=== PATIENT | male | born 1985 | race African-American/Black ===

== ENCOUNTER 2018-11-13 08:16 | Emergency (ER) | payer SELFPAY ==
--- NOTE | 2018-11-13 08:35 | EDPHYS ---
Physician Documentation [facility] Name: Ebony Irizarry Jr Age: 33 yrs Sex: Male : 1985 Arrival Date: 11/13/2018 Time: 08:21 Bed 12 Private MD: None, None ED Physician Barney Gonzalez HPI: 11/13 08:42 This 33 yrs old Male presents to ER via Ambulatory with complaints of Rash. snw 08:42 The patient's rash thought to be caused by rash to upper lip. The rash is located on snw the left corner of mouth and right corner of mouth. The rash can be described as papular. Onset: The symptoms/episode began/occurred suddenly, 3 day(s) ago, and became persistent. Severity of symptoms: At their worst the symptoms were moderate in the emergency department the symptoms are unchanged. Treatment given at home: OTC lotion/cream expressing pus. The patient has not experienced similar symptoms in the past. no fever, no vomiting. Historical: - Allergies: 08:25 No Known Allergies; hj - Home Meds: 08:25 None [Active]; hj - PMHx: 08:25 None; hj - PSHx: 08:25 None; hj - Immunization history:: Adult Immunizations. - Social history:: Smoking status: Patient uses tobacco products, Patient uses. - Ebola Screening: : Patient negative for fever greater than or equal to 101.5 degrees Fahrenheit, and additional compatible Ebola Virus Disease symptoms Patient denies exposure to infectious person Patient denies travel to an Ebola-affected area in the 21 days before illness onset. ROS: 08:41 Constitutional: Negative for fever, chills, and weight loss, Eyes: Negative for injury, snw pain, redness, and discharge, Neck: Negative for injury, pain, and swelling, Cardiovascular: Negative for chest pain, palpitations, and edema, Respiratory: Negative for shortness of breath, cough, wheezing, and pleuritic chest pain, Abdomen/GI: Negative for abdominal pain, nausea, vomiting, diarrhea, and constipation, Back: Negative for injury and pain, : Negative for injury, bleeding, discharge, and swelling, MS/Extremity: Negative for injury and deformity, Skin: Negative for injury, rash, and discoloration, Neuro: Negative for headache, weakness, numbness, tingling, and seizure, Psych: Negative for depression, anxiety, suicide ideation, homicidal ideation, and hallucinations. 08:41 ENT: Positive for rash to upper lip x 3 days, pt squeezing it and expressing some pus. Exam: 08:37 Constitutional: This is a well developed, well nourished patient who is awake, alert, snw and in no acute distress. Head/Face: Normocephalic, atraumatic. Eyes: Pupils equal round and reactive to light, extra-ocular motions intact. Lids and lashes normal. Conjunctiva and sclera are non-icteric and not injected. Cornea within normal limits. Periorbital areas with no swelling, redness, or edema. Neck: Trachea midline, no thyromegaly or masses palpated, and no cervical lymphadenopathy. Supple, full range of motion without nuchal rigidity, or vertebral point tenderness. No Meningismus. Chest/axilla: Normal chest wall appearance and motion. Nontender with no deformity. No lesions are appreciated. Cardiovascular: Regular rate and rhythm with a normal S1 and S2. No gallops, murmurs, or rubs. Normal PMI, no JVD. No pulse deficits. Respiratory: Lungs have equal breath sounds bilaterally, clear to auscultation and percussion. No rales, rhonchi or wheezes noted. No increased work of breathing, no retractions or nasal flaring. Abdomen/GI: Soft, non-tender, with normal bowel sounds. No distension or tympany. No guarding or rebound. No evidence of tenderness throughout. Back: No spinal tenderness. No costovertebral tenderness. Full range of motion. Skin: Warm, dry with normal turgor. Normal color with no rashes, no lesions, and no evidence of cellulitis. MS/ Extremity: Pulses equal, no cyanosis. Neurovascular intact. Full, normal range of motion. Neuro: Awake and alert, GCS 15, oriented to person, place, time, and situation. Cranial nerves II-XII grossly intact. Motor strength 5/5 in all extremities. Sensory grossly intact. Cerebellar exam normal. Normal gait. 08:37 ENT: TM's: are normal, Nose: is normal, Posterior pharynx: is normal, Voice: is normal. 08:37 ENT: Mouth: Lips: dry, abscess to upper lateral right lip with minimal discharge and peeling of skin of lips. Vital Signs: 08:26 BP 144 / 85; Pulse 72; Resp 18; Temp 98.3(TE); Pulse Ox 100% on R/A; Weight 102.06 kg; hj Height 5 ft. 8 in. (172.72 cm); Pain 3/10; 08:26 Body Mass Index 34.21 (102.06 kg, 172.72 cm) hj MDM: 08:34 Patient medically screened. snw 08:39 Data reviewed: vital signs, nurses notes. Data interpreted: Pulse oximetry: on room air snw is 100 %. Interpretation: normal. Counseling: I had a detailed discussion with the patient and/or guardian regarding: the historical points, exam findings, and any diagnostic results supporting the discharge/admit diagnosis, the presence of at least one elevated blood pressure reading (>120/80) during this emergency department visit, the need for outpatient follow up, to return to the emergency department if symptoms worsen or persist or if there are any questions or concerns that arise at home. Special discussion: I have referred the patient to see his PCP for further evaluation of high blood pressure. Based on the history and exam findings, there is no indication for further emergent testing or inpatient evaluation. I discussed with the patient/guardian the need to see the primary care provider for further evaluation of the symptoms. Administered Medications: 08:32 Drug: Clindamycin 300 mg Route: PO; 08:34 Follow up: Response: No adverse reaction Disposition: 11/14 07:37 Co-signature as Attending Physician, Barney Gonzalez MD. rn Disposition: 11/13/18 08:34 Discharged to Home. Impression: Cutaneous abscess of face - upper lip. - Condition is Stable. - Discharge Instructions: Skin Abscess, Steps to Quit Smoking, Smoking Hazards, Heat Therapy. - Prescriptions for Clindamycin HCl 300 mg Oral Capsule - take 1 capsule by ORAL route every 6 hours for 10 days; 40 capsule. Valtrex 1 g Oral Tablet - take 2 tablet by ORAL route every 12 hours for 1 day; 4 tablet. Diclofenac Sodium 75 mg Oral Tablet Sustained Release - take 1 tablet by ORAL route 2 times per day; 30 tablet. - Medication Reconciliation Form, Thank You Letter, Antibiotic Education, Prescription Opioid Use form. - Follow up: Emergency Department; When: As needed; Reason: Worsening of condition. Follow up: Private Physician; When: 2 - 3 days; Reason: Recheck today's complaints, Continuance of care, Re-evaluation by your physician. Signatures: Emelia López, TELEVISION NEWS PRODUCER-C TELEVISION NEWS PRODUCER-Csnw Barney Gonzalez MD MD rn Smirch, Shelby, RN RN ss Joaquin, Henry, RN RN Corrections: (The following items were deleted from the chart) 11/13 08:42 08:34 11/13/2018 08:34 Discharged to Home. Impression: Cutaneous abscess of face - ss upper lip. Condition is Stable. Forms are Medication Reconciliation Form, Thank You Letter, Antibiotic Education, Prescription Opioid Use. Follow up: Emergency Department; When: As needed; Reason: Worsening of condition. Follow up: Private Physician; When: 2 - 3 days; Reason: Recheck today's complaints, Continuance of care, Re-evaluation by your physician. snw
--- NOTE | 2018-11-13 08:35 | ER ---
Nurse's Notes [facility] Name: Ebony Irizarry Jr Age: 33 yrs Sex: Male : 1985 Arrival Date: 11/13/2018 Time: 08:21 Bed 12 Private MD: None, None Diagnosis: Cutaneous abscess of face-upper lip Presentation: 11/13 08:23 Presenting complaint: Patient states: im breaking out like a rash, pus around my lips hj and it started 2 days ago, been using an OTC cream for swelling;. Transition of care: patient was not received from another setting of care. Onset of symptoms was November 13, 2018. Risk Assessment: Do you want to hurt yourself or someone else? Patient reports no desire to harm self or others. Initial Sepsis Screen: Does the patient meet any 2 criteria? No. Patient's initial sepsis screen is negative. Does the patient have a suspected source of infection? No. Patient's initial sepsis screen is negative. Care prior to arrival: None. 08:23 Method Of Arrival: Ambulatory 08:23 Acuity: MANUEL 4 Triage Assessment: 08:25 General: Appears in no apparent distress. uncomfortable, Behavior is calm, cooperative, hj appropriate for age. Pain: Complains of pain in mouth Pain currently is 4 out of 10 on a pain scale. Historical: - Allergies: 08:25 No Known Allergies; hj - Home Meds: 08:25 None [Active]; hj - PMHx: 08:25 None; hj - PSHx: 08:25 None; hj - Immunization history:: Adult Immunizations. - Social history:: Smoking status: Patient uses tobacco products, Patient uses. - Ebola Screening: : Patient negative for fever greater than or equal to 101.5 degrees Fahrenheit, and additional compatible Ebola Virus Disease symptoms Patient denies exposure to infectious person Patient denies travel to an Ebola-affected area in the 21 days before illness onset. Screenin:25 Abuse screen: Denies threats or abuse. Denies injuries from another. Nutritional hj screening: No deficits noted. Tuberculosis screening: No symptoms or risk factors identified. Fall Risk None identified. Assessment: 08:27 Reassessment: see triage for assessment;. hj Vital Signs: 08:26 BP 144 / 85; Pulse 72; Resp 18; Temp 98.3(TE); Pulse Ox 100% on R/A; Weight 102.06 kg; hj Height 5 ft. 8 in. (172.72 cm); Pain 3/10; 08:26 Body Mass Index 34.21 (102.06 kg, 172.72 cm) hj ED Course: 08:21 Patient arrived in ED. sb2 08:21 None, None is Private Physician. sb2 08:21 Emelia L[facility]pez FNP-C [facility]. snw 08:21 Barney Gonzalez MD is Attending Physician. snw 08:25 Triage completed. hj 08:26 Arm band placed on right wrist. hj 08:26 Patient has correct armband on for positive identification. Bed in low position. Call hj light in reach. Side rails up X 1. 08:27 Neri Hampton, RN is Primary Nurse. 08:42 No provider procedures requiring assistance completed. Patient did not have IV access ss during this emergency room visit. Administered Medications: 08:32 Drug: Clindamycin 300 mg Route: PO; hj 08:34 Follow up: Response: No adverse reaction Outcome: 08:34 Discharge ordered by . snw 08:42 Discharged to home ambulatory. ss 08:42 Condition: good 08:42 Discharge instructions given to patient, Instructed on discharge instructions, follow up and referral plans. medication usage, Demonstrated understanding of instructions, follow-up care, medications, Prescriptions given X 3. 08:42 Patient left the ED. ss Signatures: Emelia López FNP-C FNP-Ting Valdivia RN RN Neri Hampton RN RN Radha Prado sb2 Corrections: (The following items were deleted from the chart) 08:28 08:26 Pulse 72bpm; Resp 18bpm; Pulse Ox 100% RA; Temp 98.3F Temporal; 102.06 kg; Height hj 5 ft. 8 in.; BMI: 34.2; Pain 3/10; hj
[2018-11-13] MEDS ORDERED: CLINDAMYCIN HCL 150 MG CAP ONE (08:43)
== END 2018-11-13 08:42 | disposition home or self-care (01) ==
LOC: ER 08:16
DX: L02.01 Cutaneous abscess of face (principal); Z72.0 Tobacco use
CPT/HCPCS: 99283

== ENCOUNTER 2019-01-09 18:12 | Emergency (ER) | payer SELFPAY ==
--- NOTE | 2019-01-09 19:53 | ER ---
Nurse's Notes [facility] Name: Ebony Irizarry Jr Age: 33 yrs Sex: Male : 1985 Arrival Date: 01/09/2019 Time: 18:15 Bed 13 Private MD: None, None Diagnosis: Cellulitis of face Presentation: 01/09 18:21 Presenting complaint: Patient states: i was here a month ago for the same thing on my tw2 upper lip, i noticed it yesterday after i got a haircut. Transition of care: patient was not received from another setting of care. Onset: The symptoms/episode began/occurred 8 hour(s) ago. Anaphylaxis evaluation, angioedema. Onset of symptoms was January 09, 2019. Risk Assessment: Do you want to hurt yourself or someone else? Patient reports no desire to harm self or others. Initial Sepsis Screen: Does the patient meet any 2 criteria? No. Patient's initial sepsis screen is negative. Does the patient have a suspected source of infection? No. Patient's initial sepsis screen is negative. Care prior to arrival: None. 18:21 Method Of Arrival: Ambulatory tw2 18:21 Acuity: MANUEL 3 tw2 Triage Assessment: 18:23 General: Appears in no apparent distress. Behavior is calm, cooperative, appropriate tw2 for age. Pain: Denies pain. Historical: - Allergies: 18:25 No Known Allergies; tw2 - Home Meds: 18:25 None [Active]; tw2 - PMHx: 18:25 angioedema, 1 month ago; tw2 - PSHx: 18:25 None; tw2 - Immunization history:: Adult Immunizations up to date. - Social history:: Smoking status: Patient uses tobacco products, smokes one pack cigarettes per day. - Ebola Screening: : Patient denies travel to an Ebola-affected area in the 21 days before illness onset. Screenin:21 Abuse screen: Denies threats or abuse. Denies injuries from another. Nutritional hj screening: No deficits noted. Tuberculosis screening: No symptoms or risk factors identified. Fall Risk None identified. Assessment: 18:40 General: Appears in no apparent distress. comfortable, Behavior is calm, cooperative. pc1 Respiratory: No deficits noted. Airway is patent Respiratory effort is even, unlabored, relaxed, Respiratory pattern is regular, Breath sounds are clear bilaterally. Derm: Swelling to the lower lip. Appears to have a insect puncture wound to the lower lip. Reports Swelling of the lower lip. Started at approximately 09:00 today. stated that he waited to come to the ER to see if it would resolve its self. 18:40 Respiratory: Airway is patent Respiratory effort is even, unlabored, Respiratory hj pattern is regular, symmetrical, Breath sounds are clear. 19:15 Reassessment: Patient appears in no apparent distress at this time. Patient and/or cc3 family updated on plan of care and expected duration. Pain level reassessed. Patient is alert, oriented x 3, equal unlabored respirations, skin warm/dry/pink. Received this male patient from morning shift RN Neri as a case of swelling of the left side of his lower lip due to unknown reason. Still to be seen by a provider as endorsed. 20:40 Reassessment: Patient appears in no apparent distress at this time. Patient and/or cc3 family updated on plan of care and expected duration. Pain level reassessed. Patient is alert, oriented x 3, equal unlabored respirations, skin warm/dry/pink. KRYSTIAN Augustin discharged the patient home with prescription given. No IV cannula in situ. Patient left ER vitally stable and ambulatory with family. Vital Signs: 18:23 BP 123 / 99; Pulse 115; Resp 19; Temp 97.9(O); Pulse Ox 100% on R/A; Weight 108.41 kg tw2 (R); Height 5 ft. 8 in. (172.72 cm); Pain 10/10; 18:39 BP 150 / 103; Pulse 90; Resp 14; Temp 98.4; Pulse Ox 100% on R/A; pc1 19:24 BP 148 / 101; Pulse 98; Resp 20 S; Temp 99(O); Pulse Ox 99% on R/A; cc3 20:38 BP 128 / 74; Pulse 88; Resp 16; Temp 98.4; Pulse Ox 100% ; Pain 3/10; ls4 18:23 Body Mass Index 36.34 (108.41 kg, 172.72 cm) tw2 ED Course: 18:15 Patient arrived in ED. dl4 18:16 None, None is Private Physician. dl4 18:23 Triage completed. tw2 18:23 Arm band placed on. tw2 18:37 Charli Damico [facility]. pm1 18:37 Kosta Shaw MD is Attending Physician. pm1 18:44 Neri Hampton, RN is Primary Nurse. hj 18:44 Patient has correct armband on for positive identification. Bed in low position. Call pc1 light in reach. Side rails up X 1. Adult w/ patient. 18:44 Patient has correct armband on for positive identification. Bed in low position. Call hj light in reach. Side rails up X 1. 20:41 No provider procedures requiring assistance completed. Patient did not have IV access ls4 during this emergency room visit. Administered Medications: 20:00 Drug: Tylenol #3 (300 mg-30 mg) 1 tablet Route: PO; cc3 20:42 Follow up: Response: No adverse reaction ls4 20:10 Drug: Clindamycin 600 mg {Note: 300 mg on each right and left gluteal area.} Route: IM; cc3 Site: right gluteus; 20:42 Follow up: Response: No adverse reaction ls4 Outcome: 19:53 Discharge ordered by MD. pm1 20:41 Discharged to home ambulatory, with family. ls4 20:41 Condition: good 20:41 Discharge instructions given to patient, significant other, Instructed on discharge instructions, follow up and referral plans. medication usage, safety practices, Demonstrated understanding of instructions, follow-up care, medications, Prescriptions given X 3. 20:42 Patient left the ED. ls4 Signatures: Neri Hampton RN RN hj Marinas, Patrick, NP UNEMPLOYMENT EXAMINER pm1 Alicia Canales RN RN tw2 Jennifer Aguilar cc3 Frances Parker RN RN ls4 Kayden Miller dl4 Charli Perry pc1 Corrections: (The following items were deleted from the chart) 18:25 18:23 Pulse 115bpm; Resp 19bpm; Pulse Ox 100% RA; Temp 97.9F Oral; 108.41 kg Reported; tw2 Height 5 ft. 8 in.; BMI: 36.3; Pain 10/10; tw2
--- NOTE | 2019-01-09 19:53 | EDPHYS ---
Physician Documentation [facility] Name: Ebony Irizarry Jr Age: 33 yrs Sex: Male : 1985 Arrival Date: 01/09/2019 Time: 18:15 Bed 13 Private MD: None, None ED Physician Kosta Shaw HPI: 01/09 20:00 This 33 yrs old Black Male presents to ER via Ambulatory with complaints of Swollen lip.pm1 20:00 The patient presents with swelling of the lips. Onset: The symptoms/episode pm1 began/occurred yesterday. Associated signs and symptoms: Pertinent negatives: fever, shortness of breath. Possible causes: Pimple. At home the patient or guardian has treated the symptoms with Attempted to express and lip got more swollen. Severity of symptoms: in the emergency department the symptoms are worse. The patient has experienced a previous episode, approximately 1 months ago, and the symptoms today are exactly the same. The patient has not recently seen a physician. 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 Historical: - Allergies: 18:25 No Known Allergies; tw2 - Home Meds: 18:25 None [Active]; tw2 - PMHx: 18:25 angioedema, 1 month ago; tw2 - PSHx: 18:25 None; tw2 - Immunization history:: Adult Immunizations up to date. - Social history:: Smoking status: Patient uses tobacco products, smokes one pack cigarettes per day. - Ebola Screening: : Patient denies travel to an Ebola-affected area in the 21 days before illness onset. ROS: 20:00 Constitutional: Negative for fever, chills, and weight loss, Eyes: Negative for injury, pm1 pain, redness, and discharge, Neck: Negative for injury, pain, and swelling, Cardiovascular: Negative for chest pain, palpitations, and edema, Respiratory: Negative for shortness of breath, cough, wheezing, and pleuritic chest pain, Abdomen/GI: Negative for abdominal pain, nausea, vomiting, diarrhea, and constipation, Back: Negative for injury and pain, : Negative for injury, bleeding, discharge, and swelling, MS/Extremity: Negative for injury and deformity, Skin: Negative for injury, rash, and discoloration. 20:00 ENT: Positive for lower left sided lip swelling. Exam: 20:00 Constitutional: This is a well developed, well nourished patient who is awake, alert, pm1 and in no acute distress. Head/Face: Normocephalic, atraumatic. Eyes: Pupils equal round and reactive to light, extra-ocular motions intact. Lids and lashes normal. Conjunctiva and sclera are non-icteric and not injected. Cornea within normal limits. Periorbital areas with no swelling, redness, or edema. Neck: Trachea midline, no thyromegaly or masses palpated, and no cervical lymphadenopathy. Supple, full range of motion without nuchal rigidity, or vertebral point tenderness. No Meningismus. Chest/axilla: Normal chest wall appearance and motion. Nontender with no deformity. No lesions are appreciated. Cardiovascular: Regular rate and rhythm with a normal S1 and S2. No gallops, murmurs, or rubs. Normal PMI, no JVD. No pulse deficits. Respiratory: Lungs have equal breath sounds bilaterally, clear to auscultation and percussion. No rales, rhonchi or wheezes noted. No increased work of breathing, no retractions or nasal flaring. Abdomen/GI: Soft, non-tender, with normal bowel sounds. No distension or tympany. No guarding or rebound. No evidence of tenderness throughout. Back: No spinal tenderness. No costovertebral tenderness. Full range of motion. Skin: Warm, dry with normal turgor. Normal color with no rashes, no lesions, and no evidence of cellulitis. MS/ Extremity: Pulses equal, no cyanosis. Neurovascular intact. Full, normal range of motion. Neuro: Awake and alert, GCS 15, oriented to person, place, time, and situation. Cranial nerves II-XII grossly intact. Motor strength 5/5 in all extremities. Sensory grossly intact. Cerebellar exam normal. Normal gait. 20:00 ENT: External ear(s): are unremarkable, Ear canal(s): are normal, Nose: is normal, Mouth: Lips: swelling to the left lower lip. No fluctuance. Central flat lesion in the center without any discharge , Posterior pharynx: is normal, airway is patent, normal tonsil apperance, normal sized tonsils, normal uvula appearance, normal uvula size. Vital Signs: 18:23 BP 123 / 99; Pulse 115; Resp 19; Temp 97.9(O); Pulse Ox 100% on R/A; Weight 108.41 kg tw2 (R); Height 5 ft. 8 in. (172.72 cm); Pain 10/10; 18:39 BP 150 / 103; Pulse 90; Resp 14; Temp 98.4; Pulse Ox 100% on R/A; pc1 19:24 BP 148 / 101; Pulse 98; Resp 20 S; Temp 99(O); Pulse Ox 99% on R/A; cc3 20:38 BP 128 / 74; Pulse 88; Resp 16; Temp 98.4; Pulse Ox 100% ; Pain 3/10; ls4 18:23 Body Mass Index 36.34 (108.41 kg, 172.72 cm) tw2 MDM: 18:50 Patient medically screened. pm1 19:52 Data reviewed: vital signs. Data interpreted: Pulse oximetry: on room air is 99 %. pm1 Interpretation: normal. Counseling: I had a detailed discussion with the patient and/or guardian regarding: the historical points, exam findings, and any diagnostic results supporting the discharge/admit diagnosis, the need for outpatient follow up, to return to the emergency department if symptoms worsen or persist or if there are any questions or concerns that arise at home. Administered Medications: 20:00 Drug: Tylenol #3 (300 mg-30 mg) 1 tablet Route: PO; cc3 20:42 Follow up: Response: No adverse reaction ls4 20:10 Drug: Clindamycin 600 mg {Note: 300 mg on each right and left gluteal area.} Route: IM; cc3 Site: right gluteus; 20:42 Follow up: Response: No adverse reaction ls4 Disposition: 01/10 07:38 Co-signature as Attending Physician, Kosta Shaw MD I agree with the assessment and kdr plan of care. Disposition: 01/09/19 19:53 Discharged to Home. Impression: Cellulitis of face. - Condition is Stable. - Discharge Instructions: Cellulitis, Adult. - Prescriptions for Clindamycin HCl 300 mg Oral Capsule - take 1 capsule by ORAL route every 6 hours for 10 days; 40 capsule. Valtrex 1 g Oral Tablet - take 2 tablet by ORAL route every 12 hours for 1 day; 4 tablet. Tramadol 50 mg Oral Tablet - take 1 tablet by ORAL route every 8 hours as needed; 12 tablet. - Medication Reconciliation Form, Thank You Letter, Antibiotic Education, Prescription Opioid Use form. - Follow up: Emergency Department; When: As needed; Reason: Worsening of condition. Follow up: Private Physician; When: 2 - 3 days; Reason: Recheck today's complaints, Continuance of care, Re-evaluation by your physician. - Problem is new. - Symptoms have improved. Signatures: Kosta Shaw MD MD kdr Charli Damico NP BUREAU DIRECTOR pm1 Alicia Canales RN RN tw2 Jennifer Aguilar cc3 Frances Parker, RN RN ls4 Corrections: (The following items were deleted from the chart) 01/09 20:42 19:53 01/09/2019 19:53 Discharged to Home. Impression: Cellulitis of face. Condition is ls4 Stable. Forms are Medication Reconciliation Form, Thank You Letter, Antibiotic Education, Prescription Opioid Use. Follow up: Emergency Department; When: As needed; Reason: Worsening of condition. Follow up: Private Physician; When: 2 - 3 days; Reason: Recheck today's complaints, Continuance of care, Re-evaluation by your physician. Problem is new. Symptoms have improved. pm1
[2019-01-09] MEDS ORDERED: CODEINE 30MG/APAP 300MG TAB ONE (20:10)
[2019-01-09] MEDS ORDERED: CLINDAMYCIN IV 150 MG/ML (4 mL) VIAL ONE (20:13)
== END 2019-01-09 20:42 | disposition home or self-care (01) ==
LOC: ER 18:12
DX: L03.211 Cellulitis of face (principal); F17.210 Nicotine dependence, cigarettes, uncomplicated
CPT/HCPCS: 96372; 99283; S0077

== ENCOUNTER → 2024-01-28 | Emergency (ER) | payer SELFPAY ==
[~2024-01-28] MED LIST: BUPIVACAINE 0.25% PF 10 ML VIAL ONE; CEPHALEXIN 250 MG CAP ONE; HYDROCODONE/APAP 10/325 TAB ONE; LIDOCAINE 1% MPF 5 ML VIAL ONE; SMZ./TMP. 800/160 MG TABLET ONE
--- OUTSIDE RECORDS SUMMARY | 2024-01-28 14:07 | XMS REPORT | Continuity of Care Document ---
Author Name Unknown Address [address] 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 Role Phone Unavailable Unavailable Unavailable Payers Payer Name Policy Type Policy Number Effective Date Expirati on Date Source Allergies, Adverse Reactions, Alerts Allergy Name Allergy Type Status Severity Reaction(s) Onset Date Inactive Date Treating Clinician Comments Source No Known Drug Allergie s DA Active U 02-18 00:00: 00 MCSETXm Vital Signs Vital Name Observation Time Observation Value Comments S ource 02 Sat by Pulse Oximetry 2021-02-20 14:16:38 100 /min Body Mass Index 2021-02-20 14:16:38 41.0 Height 2021-02-20 14:16:38 172.72\S\68 Pulse Rate 2021-02-20 14:16:38 94 /min Respiratory Rate 2021-02-20 14:16:38 18 /min Temperature 2021-02-20 14:16:38 37.1\S\98.7 Weight 2021-02-20 14:16:38 332425.939\S\4320 02 Sat by Pulse Oximetry 2021-02-18 23:07:22 100 /min Body Mass Index 2021-02-18 23:07:22 41.0 Height 2021-02-18 23:07:22 172.72\S\68 Pulse Rate 2021-02-18 23:07:22 94 /min Respiratory Rate 2021-02-18 23:07:22 18 /min Temperature 2021-02-18 23:07:22 37.1\S\98.7 Weight 2021-02-18 23:07:22 524250.939\S\4320 02 Sat by Pulse Oximetry 2021-02-18 20:42:07 99 /min Body Mass Index 2021-02-18 20:42:07 41.0 Height 2021-02-18 20:42:07 172.72\S\68 Pulse Rate 2021-02-18 20:42:07 85 /min Respiratory Rate 2021-02-18 20:42:07 18 /min Temperature 2021-02-18 20:42:07 36.8\S\98.2 Weight 2021-02-18 20:42:07 591639.939\S\4320 02 Sat by Pulse Oximetry 2021-02-18 19:48:02 99 /min Body Mass Index 2021-02-18 19:48:02 41.0 Height 2021-02-18 19:48:02 172.72\S\68 Pulse Rate 2021-02-18 19:48:02 85 /min Respiratory Rate 2021-02-18 19:48:02 18 /min Temperature 2021-02-18 19:48:02 36.8\S\98.2 Weight 2021-02-18 19:48:02 681137.939\S\4320 02 Sat by Pulse Oximetry 2021-02-18 19:37:20 99 /min Body Mass Index 2021-02-18 19:37:20 41.0 Height 2021-02-18 19:37:20 172.72\S\68 Pulse Rate 2021-02-18 19:37:20 85 /min Respiratory Rate 2021-02-18 19:37:20 18 /min Temperature 2021-02-18 19:37:20 36.8\S\98.2 Weight 2021-02-18 19:37:20 279593.939\S\4320 02 Sat by Pulse Oximetry 2021-02-18 19:36:49 99 /min Body Mass Index 2021-02-18 19:36:49 41.0 Height 2021-02-18 19:36:49 172.72\S\68 Pulse Rate 2021-02-18 19:36:49 85 /min Respiratory Rate 2021-02-18 19:36:49 18 /min Temperature 2021-02-18 19:36:49 36.8\S\98.2 Weight 2021-02-18 19:36:49 626749.939\S\4320 WEIGHT 2021-02-18 19:32:00 122.335393 kg HEIGHT 2021-02-18 19:32:00 172.72 cm Encounters Start Date/Time End Date/Time Encounter Type Admission Type Attending [facility] Care Department Encounter ID Source 2021-02-18 19:32:00 Inpatient MCSETXm MCSETXm [id number] MCSETXm
--- NOTE | 2024-01-28 15:25 | ER ---
Nurse's Notes [facility] Name: Ebony Irizarry Jr Age: 38 yrs Sex: Male : 1985 Arrival Date: 01/28/2024 Time: 14:05 Bed 11 Private MD: Diagnosis: Cutaneous abscess of left hand-paronychia, middle finger Presentation: 01/27 14:38 Chief complaint: Patient states: Pt c/o increasing left middle finger swelling and pain tl4 x 4 days. Pt states symptoms started after he bit the cuticles. Coronavirus screen: At this time, the client does not indicate any symptoms associated with coronavirus-19. Ebola Screen: No symptoms or risks identified at this time. Initial Sepsis Screen: Does the patient meet any 2 criteria? No. Patient's initial sepsis screen is negative. Does the patient have a suspected source of infection? No. Patient's initial sepsis screen is negative. Risk Assessment: Do you want to hurt yourself or someone else? Patient reports no desire to harm self or others. Onset of symptoms was January 24, 2024. 14:38 Method Of Arrival: Ambulatory tl4 14:38 Acuity: MANUEL 4 tl4 Triage Assessment: 14:42 General: Appears uncomfortable, Behavior is calm, cooperative. Pain: Complains of pain tl4 in left hand and left arm and left middle finger. EENT: No deficits noted. No signs and/or symptoms were reported regarding the EENT system. Neuro: Level of Consciousness is awake, alert, obeys commands, Oriented to person, place, time, situation, Gait is steady, Speech is normal. Cardiovascular: No deficits noted. Capillary refill < 3 seconds Patient's skin is warm and dry. Respiratory: Breath sounds are clear bilaterally. GI: No deficits noted. No signs and/or symptoms were reported involving the gastrointestinal system. : No deficits noted. No signs and/or symptoms were reported regarding the genitourinary system. Derm: No deficits noted. No signs and/or symptoms reported regarding the dermatologic system. Musculoskeletal: Reports pain in left hand and left arm. Historical: - Allergies: 14:41 No Known Allergies; tl4 - Home Meds: 14:41 None [Active]; tl4 - PMHx: 14:41 angioedema; tl4 - PSHx: 14:41 None; tl4 - Immunization history:: Adult Immunizations unknown. - Social history:: Smoking status: Patient reports the use of cigarette tobacco products, smokes one pack cigarettes per day. Patient/guardian denies using alcohol, street drugs. Screenin:30 [facility] ED Fall Risk Assessment (Adult) History of falling in the last 3 months, ph including since admission No falls in past 3 months (0 pts) Confusion or Disorientation No (0 pts) Intoxicated or Sedated No (0 pts) Impaired Gait No (0 pts) Mobility Assist Device Used No (0 pt) Altered Elimination No (0 pt) Score/Fall Risk Level 0 - 2 = Low Risk Oriented to surroundings, Maintained a safe environment, Provided non-skid footwear, Hourly rounding (assess needs \T\ fall precautionary measures) done. Abuse screen: Denies threats or abuse. Denies injuries from another. Nutritional screening: No deficits noted. Tuberculosis screening: No symptoms or risk factors identified. Assessment: 15:28 General: Appears in no apparent distress. Behavior is calm, cooperative, appropriate ph for age. Pain: Complains of pain in dorsal aspect of distal phalanx of left middle finger, dorsal aspect of middle phalanx of left middle finger and dorsal aspect of proximal phalanx of left middle finger. Neuro: Level of Consciousness is awake, alert, obeys commands, Oriented to person, place, time, situation. Cardiovascular: Capillary refill < 3 seconds in bilateral fingers Patient's skin is warm and dry. Musculoskeletal: Swelling present in dorsal aspect of distal phalanx of left middle finger, dorsal aspect of middle phalanx of left middle finger and dorsal aspect of proximal phalanx of left middle finger. 15:30 Reassessment: Discharge pending nerve block. hb 16:30 Reassessment: Patient appears in no apparent distress at this time. Patient and/or hb family updated on plan of care and expected duration. Pain level reassessed. Patient is alert, oriented x 3, equal unlabored respirations, skin warm/dry/pink. Vital Signs: 14:38 BP 156 / 99; Pulse 115; Resp 20; Temp 98.4(O); Pulse Ox 99% ; Weight 122.47 kg; Height tl4 5 ft. 7 in. ; Pain 10/10; 16:52 Pulse 88; Resp 16; Pulse Ox 100% on R/A; hb 14:38 Body Mass Index 42.29 (122.47 kg, 170.18 cm) tl4 14:38 Pain Scale: Adult tl4 ED Course: 14:07 Patient arrived in ED. mr 14:22 Ashely Mosqueda FNP-C is PHCP. kb 14:22 Brain Walter MD is Attending Physician. kb 14:41 Triage completed. tl4 14:42 Arm band placed on right wrist. tl4 14:56 Christal Montiel RN is Primary Nurse. ph 15:29 Patient has correct armband on for positive identification. Bed in low position. Door ph closed. Noise minimized. 15:29 PO fluids given. ph 15:30 No provider procedures requiring assistance completed. Patient did not have IV access ph during this emergency room visit. 16:30 Provided Education on: medications . hb Administered Medications: 15:25 Drug: [place] PO 10 mg-325 mg 1 tabs PO once Route: PO; ph 15:30 Follow up: Response: No adverse reaction ph 15:25 Drug: Cephalexin PO 500 mg PO once Route: PO; ph 15:30 Follow up: Response: No adverse reaction ph 15:25 Drug: Trimethoprim-Sulfamethoxazole PO (160 mg-800 mg (DS) 1 tablet PO once Route: PO; ph 15:31 Follow up: Response: No adverse reaction ph 16:50 Drug: Lidocaine Infiltration (1 %) 1 vials 5 ml Infiltration once; to bedside {Note: hb Administered by KRYSTIAN Lund.} Volume: 5 ml; Route: Infiltration; 16:50 Drug: Bupivacaine Infiltration (0.5 %) 1 vials 10 ml Infiltration once {Note: hb Administered by KRYSTIAN Lund.} Volume: 10 ml; Route: Infiltration; Medication: 15:29 VIS not applicable for this client. ph Outcome: 15:24 Discharge ordered by . kb 16:51 Discharge ordered by MD. kb 16:52 Discharged to home ambulatory, with family, hb 16:52 Condition: stable 16:52 Discharge instructions given to patient, Instructed on discharge instructions, follow up and referral plans. medication usage, Demonstrated understanding of instructions, follow-up care, medications, Prescriptions given X 3, 16:53 Patient left the ED. hb Signatures: Ashely Mosqueda FNP-C SHEAR SCRAPMAN-Ckb Alexandra Multani, Reg Reg mr Christal Montiel RN RN Whit Larson, RN RN Cristopher Gastelum, RN RN tl4 Corrections: (The following items were deleted from the chart) 14:42 14:41 PMHx: angioedema, 1 month ago; tl4 tl4
--- NOTE | 2024-01-28 15:25 | EDPHYS ---
Physician Documentation [facility] Name: Ebony Irizarry Jr Age: 38 yrs Sex: Male : 1985 Arrival Date: 01/28/2024 Time: 14:05 Bed 11 Private MD: ED Physician Brain Walter HPI: 01/27 15:21 This 38 yrs old Black Male presents to ER via Ambulatory with complaints of Infected kb finger. 15:21 Pt is a 38 year old male who presents for pain and swelling to left middle finger that kb started 4 days ago and has gotten worse. States he bites his cuticles and reports the pain started when he bit too much. Denies fever. Full ROM of finger. Historical: - Allergies: 14:41 No Known Allergies; tl4 - Home Meds: 14:41 None [Active]; tl4 - PMHx: 14:41 angioedema; tl4 - PSHx: 14:41 None; tl4 - Immunization history:: Adult Immunizations unknown. - Social history:: Smoking status: Patient reports the use of cigarette tobacco products, smokes one pack cigarettes per day. Patient/guardian denies using alcohol, street drugs. ROS: 15:20 Constitutional: As per HPI kb Exam: 15:20 Constitutional: This is a well developed, well nourished patient who is awake, alert, kb and in no acute distress. Head/Face: Normocephalic, atraumatic. ENT: Moist Mucous membranes Cardiovascular: Regular rate Respiratory: Respirations even and unlabored. No increased work of breathing. Talking in full sentences MS/ Extremity: Pulses equal, no cyanosis. Neurovascular intact. Full, normal range of motion. Neuro: Awake and alert, GCS 15, oriented to person, place, time, and situation. Moves all extremities. Normal gait. 15:20 Skin: paronychia to left middle finger. Vital Signs: 14:38 BP 156 / 99; Pulse 115; Resp 20; Temp 98.4(O); Pulse Ox 99% ; Weight 122.47 kg; Height tl4 5 ft. 7 in. ; Pain 10/10; 16:52 Pulse 88; Resp 16; Pulse Ox 100% on R/A; hb 14:38 Body Mass Index 42.29 (122.47 kg, 170.18 cm) tl4 14:38 Pain Scale: Adult tl4 Procedures: 16:18 Nerve block: (digital) of palmar aspect of proximal phalanx of left middle finger kb Medication: Lidocaine 1% without epinephrine Marcaine 0.5%, Amount: 6 mls were injected, Effect: the patient has resolution of the pain, Set up for procedure. Performed by Ashely CARDENAS Patient tolerated well. 16:51 I \T\ D: Incision and drainage was performed for an abscess of the left left middle kb fingernail Prepped with alcohol, Drained moderate amount purulent fluid. the patient tolerated the procedure well, 18G needle used to push cuticle back. MDM: 14:22 Patient medically screened. kb 15:21 Data reviewed: vital signs, nurses notes. kb 15:22 Differential diagnosis: paronychia, felon. Counseling: I had a detailed discussion with kb the patient and/or guardian regarding the historical points, exam findings, and any diagnostic results supporting the discharge/admit diagnosis, the need for outpatient follow up, a family practitioner, to return to the emergency department if symptoms worsen or persist or if there are any questions or concerns that arise at home. ED course: I recommended a digit block and drainage of paronychia. Pt refuses any needle sticks or procedures. . 15:38 ED course: upon discharge pt agrees to injection. Will perform digital block . kb Administered Medications: 15:25 Drug: [place] PO 10 mg-325 mg 1 tabs PO once Route: PO; ph 15:30 Follow up: Response: No adverse reaction ph 15:25 Drug: Cephalexin PO 500 mg PO once Route: PO; ph 15:30 Follow up: Response: No adverse reaction ph 15:25 Drug: Trimethoprim-Sulfamethoxazole PO (160 mg-800 mg (DS) 1 tablet PO once Route: PO; ph 15:31 Follow up: Response: No adverse reaction ph 16:50 Drug: Lidocaine Infiltration (1 %) 1 vials 5 ml Infiltration once; to bedside {Note: hb Administered by KRYSTIAN Lund.} Volume: 5 ml; Route: Infiltration; 16:50 Drug: Bupivacaine Infiltration (0.5 %) 1 vials 10 ml Infiltration once {Note: hb Administered by KRYSTIAN Lund.} Volume: 10 ml; Route: Infiltration; Disposition Summary: 01/28/24 16:51 Discharge Ordered Notes: Location: Home(01/28/24 16:51) kb Condition: Stable(01/28/24 16:51) kb Diagnosis - Cutaneous abscess of left hand - paronychia, middle finger(01/28/24 16:51) kb Followup: kb - With: Emergency Department - When: As needed - Reason: Worsening of condition Followup: kb - With: Private Physician - When: 2 - 3 days - Reason: Recheck today's complaints, Continuance of care, Re-evaluation by your physician Discharge Instructions: - Discharge Summary Sheet kb - Paronychia, [id number] kb Forms: - Medication Reconciliation Form kb - Thank You Letter kb - Antibiotic Education kb - Prescription Opioid Use kb - Patient Portal Instructions kb - Leadership Thank You Letter kb Prescriptions: - Cephalexin 500 mg Oral Capsule - take 1 capsule ORAL route every 8 hours for 10 days; 30 capsule; Refills: 0, kb Product Selection Permitted - Diclofenac Sodium 75 mg Oral tablet, delayed release (enteric coated) - take 1 tablet ORAL route 2 times per day As needed; 30 tablet; Refills: 0, kb Product Selection Permitted - Bactrim DS 800-160 mg Oral Tablet - take 1 tablet ORAL route every 12 hours for 10 days; 20 tablet; Refills: 0, kb Product Selection Permitted Signatures: Ashely Mosqueda, CHANNEL REBUILDER-C CHANNEL REBUILDER-Ckb Christal Montiel, RN RN Whit Carroll, RN RN Cristopher Gastelum RN RN tl4 Corrections: (The following items were deleted from the chart) 14:42 14:41 PMHx: angioedema, 1 month ago; tl4 tl4 15:39 15:24 Home kb kb 15:39 15:24 Stable kb kb 15:39 15:24 Cutaneous abscess of left hand - paronychia, middle finger kb kb
[2024-01-28 17:05] VITALS: BP 156/99; TEMP 98.4; O2SAT 100
== END ==
LOC: ER 14:05
PROC: 0H9GXZZ Drainage of Left Hand Skin, External Approach (ICD-10-PCS; principal; 2024-01-28)
DX: L03.012 Cellulitis of left finger (principal)
CPT/HCPCS: 64450; 99283; J2001